=== PATIENT | female | born 1980 | race Caucasian/White ===

== ENCOUNTER → 2017-05-04 | Outpatient (CLI) | payer OTHER ==
--- NOTE | 2017-05-04 11:07 | RAD ---
Left knee, 2 views, 05/04/2017: History: Anterior knee pain No fracture or dislocation is identified. The knee joint space is well-preserved. There is minimal posterior patellar spurring. No joint effusion is seen. IMPRESSION: 1. Minimal patellofemoral degenerative change. 2. No acute bony abnormality is detected.
== END | disposition home or self-care (01) ==
LOC: DXRADRC 10:42
PROVIDERS: ATTEND Nurse Practitioner Family
DX: M17.12 Unilateral primary osteoarthritis, left knee (principal)
CPT/HCPCS: 73560

== ENCOUNTER → 2022-02-09 | Outpatient (CLI) | payer OTHER ==
--- NOTE | 2022-02-09 15:47 | RAD ---
EXAMINATION: XR KNEE 3 [id number]_RT. HISTORY: 41 years Female Reason: S/P FALL x1MON, STILL HAVING PAIN COMPARISON: None. FINDINGS: No fracture, dislocation or radiopaque foreign body. Minimal osteophytes seen at the upper from pa tellar margin and subchondral sclerosis at the patella articular surface noted. No significant the ar thritic changes or joint space narrowing is seen otherwise. IMPRESSION: Mild degenerative changes at the patellofemoral joint. Electronically signed by: Rd Andrew MD (02/09/2022 3:45 PM) [id number]
== END ==
LOC: RAD 15:23
PROVIDERS: ATTEND Nurse Practitioner Family
DX: M17.11 Unilateral primary osteoarthritis, right knee (principal)
CPT/HCPCS: 73562